=== PATIENT | male | born 1970 | race Asian ===

== ENCOUNTER 2016-12-06 08:45 | Inpatient (IN) | payer OTHER ==
[~2016-12-06] VITALS: Ht 170.2 cm; Wt 75.5 kg
[2016-12-06 10:25] LABS: BASOPHIL % 0.1 % (0-2); PLATELET COUNT 308 x10^3mcL (130-400)
[2016-12-06 10:30] LABS: CALCIUM 8.9 mg/dL (8.5-10.1); CARBON DIOXIDE 31.7 mmol/L (21-32); CREATININE SERUM 1.5 mg/dL (0.7-1.3); POTASSIUM SERUM 3.8 mmol/L (3.5-5.1)
[2016-12-06 10:46] LABS: ALBUMIN 4.4 g/dL (3.4-5.0); BILIRUBIN TOTAL 1.1 mg/dL (0.20-1.00); TOTAL PROTEIN, SERUM 7.8 g/dL (6.4-8.2)
[2016-12-06 10:48] LABS: microscopic required? YES; urine erythrocyte 1+ (NEGATIVE)
[2016-12-06] MEDS ORDERED: IBUPROFEN400 MG PO (12:45)
[2016-12-06] MEDS ORDERED: TYLENOL PO (12:46)
[2016-12-06 13:35] LABS: CHOLESTEROL/HDL RATIO 2.8; MAGNESIUM 2.1 mg/dL (1.8-2.4); PHOSPHOROUS 3.7 mg/dL (2.5-4.9)
[2016-12-06 13:37] LABS: AMPHETAMINE QUAL UR NONE DETECTED (NEG <=1000)
[2016-12-06 13:43] LABS: FREE T4 1.15 ng/dL (0.76-1.46); FREE THYROXINE INDEX 2.8 ug/dL (1.4-4.5); T4(THYROXINE) 7.7 ug/dL (4.7-13.3)
[2016-12-06 13:52] LABS: T3 TOTAL 0.86 ng/mL
[2016-12-06 13:59] VITALS: BP 109/79
[2016-12-06 17:25] VITALS: BP 114/79
[2016-12-06 20:12] VITALS: BP 124/93
[2016-12-06 22:10] VITALS: BP 136/91
[2016-12-07 06:29] VITALS: BP 100/58
[2016-12-07 06:38] LABS: BASOPHIL % 0.4 % (0-2); PLATELET COUNT 249 x10^3mcL (130-400); RED CELL DISTRIBUTION WIDTH 13.3 % (11.5-14.5)
[2016-12-07 06:52] LABS: CALCIUM 8.1 mg/dL (8.5-10.1); CARBON DIOXIDE 26.6 mmol/L (21-32); CHLORIDE SERUM 108 mmol/L (98-107); CREATININE SERUM 1.2 mg/dL (0.7-1.3); GFR1 > 60 mL/min; GLUCOSE SERUM 101 mg/dL (74-106); MAGNESIUM 2.1 mg/dL (1.8-2.4); PHOSPHOROUS 3.3 mg/dL (2.5-4.9); POTASSIUM SERUM 4.3 mmol/L (3.5-5.1); SODIUM SERUM 144 mmol/L (136-145)
[2016-12-07 09:43] VITALS: BP 110/72
[2016-12-07] MEDS ORDERED: NOR10T PO (14:00)
[2016-12-07] MEDS ORDERED: TOR10 PO (14:00)
[2016-12-07] MEDS ORDERED: COLACE100 MG PO (14:01)
[2016-12-07] MEDS ORDERED: FLO4 PO (14:02)
[2016-12-07 14:39] VITALS: BP 110/72
== END 2016-12-07 18:35 | disposition home or self-care (01) | DRG 694 ==
LOC: ED 08:45 → MU 12:46 → DU 12:46 → MU 12-07 07:46
PROVIDERS: Emergency Medicine; ADMIT Family Medicine
DX: N13.2 Hydronephrosis with renal and ureteral calculous obstruction (principal); N17.0 Acute kidney failure with tubular necrosis; E78.5 Hyperlipidemia, unspecified; D72.828 Other elevated white blood cell count; E78.2 Mixed hyperlipidemia; Z98.52 Vasectomy status; N18.3 Chronic kidney disease, stage 3 (moderate)
CPT/HCPCS: 80307; 83880; 84439; J1885; J7030